=== PATIENT | female | born 1950 | race Caucasian/White ===

== ENCOUNTER 2018-01-24 10:06 | Outpatient (CLI) | payer OTHER | END 2018-01-24 10:19 | disposition home or self-care (01) | LOC: SONOGRAMA 10:06 | DX: K30 Functional dyspepsia (principal); R10.13 Epigastric pain; R11.0 Nausea; R19.7 Diarrhea, unspecified; R05 Cough; R09.82 Postnasal drip; R07.0 Pain in throat; R12 Heartburn; J32.8 Other chronic sinusitis ==

== ENCOUNTER 2022-11-14 09:23 | Outpatient (CLI) | payer OTHER | END 2022-11-14 09:30 | disposition home or self-care (01) | LOC: RAD 09:23 | PROVIDERS: ATTEND Family Medicine | DX: M54.59 Other low back pain (principal); M25.551 Pain in right hip; R06.02 Shortness of breath; R05.8 Other specified cough ==